=== PATIENT | female | born 1980 | race Hispanic/Latino ===

== ENCOUNTER 2024-05-22 17:56 | Emergency (ER) | payer MEDICAID ==
[~2024-05-22] VITALS: Ht 157.5 cm; Wt 70.0 kg
[2024-05-22 18:07] VITALS: BP 147/81
[2024-05-22 18:15] VITALS: BP 145/92
[2024-05-22 18:31] VITALS: BP 127/75
[2024-05-22 18:46] VITALS: BP 114/70
[2024-05-22] MEDS ORDERED: AMOX/K CLAV875 M1 PO (18:57)
[2024-05-22 19:00] VITALS: BP 123/101
[2024-05-22 19:58] VITALS: BP 123/101
== END 2024-05-22 19:59 | disposition home or self-care (01) ==
LOC: ED 17:56
DX: R59.0 Localized enlarged lymph nodes (principal); Z20.822 Contact with and (suspected) exposure to COVID-19